=== PATIENT | female | born 1990 | race Caucasian/White ===

== ENCOUNTER 2017-12-28 02:36 | Inpatient (IN) | payer OTHER ==
[~2017-12-28] VITALS: Ht 160 cm; Wt 63.5 kg
--- NOTE | ~2017-12-28 | HC ---
[facility] [place] [address] CONSULTATION Name: ONDINA CLARK Room #: 201-P [facility] IN M.R.#: [id number] Admission: 12/28/17 Attend Phys: Justo Gonzalez MD Discharge: 12/28/17 Date of : 86 Report #: [id number] THIS REPORT FOR: //name// CC: Justo Mckeonmy Mynor DATE OF SERVICE: 12/28/2017 INDICATION: Palpitations. HISTORY OF PRESENT ILLNESS: This is a 27-year-old female presenting with palpitations, elevated blood pressure and tingling across the chest. About 2 weeks ago, she was at the seismograph helper's office and was told that she had an elevated blood pressure. The patient had just moved to [place] and returned this week to visit family members. She was checking her blood pressure and noted to be elevated. Yesterday, she noted a racing heart as well as an elevated blood pressure. She tried to go to sleep, but felt tingling across the chest area, not chest pain. She noticed a fast heart rate and was concerned. She presented to the ER for an evaluation. She denies any history of fever, chills, nausea or diarrhea over the last several days. CTA of the chest revealed no evidence for PE. PAST MEDICAL HISTORY: The patient has a history of pulmonic stenosis, followed by Cardiology, last seen 2 years ago. She has not required any procedures for this problem. Now with borderline hypertension, ?anxiety disorder. ALLERGIES: DOXYCYCLINE. MEDICATIONS: Include control pills and vitamins. SOCIAL HISTORY: Denies tobacco use. Drinks alcohol socially. REVIEW OF SYSTEMS: A full 10-point review of systems performed. Only the pertinent positives and negatives as described in the HPI. PHYSICAL EXAMINATION: VITAL SIGNS: Blood pressure is 140/65, heart rate 76 beats per minute. GENERAL APPEARANCE: This is a well-developed, well-nourished female in no acute distress. HEENT: Normocephalic, atraumatic. Oral mucosa moist. NECK: Supple. LUNGS: Clear to auscultation. CARDIAC: Regular rate and rhythm. S1, S2 positive, 1/6 systolic murmur. ABDOMEN: Soft, nontender. EXTREMITIES: No cyanosis, no edema. [facility] [address] [place] [address] CONSULTATION Name: ONDINA CLARK [facility] Room #: 201-P [facility] IN M.R.#: [id number] Admission: 12/28/17 Attend Phys: Justo oGnzalez MD Discharge: 12/28/17 Date of : 86 Report #: [id number] NEUROLOGIC: Alert and oriented x 3. LABORATORY VALUES: Sodium is 138, creatinine 0.9. TSH is 2.472. White count 6.6, hemoglobin is 15.9. ASSESSMENT AND PLAN: 1. Tachycardia, the rhythm reveals sinus tachycardia, initially at 130 beats per minute, now less than 100 beats per minute, most likely related to anxiety. She admits to feeling increased stress over the past several days. Presently, heart rate is less than 100 beats per minute. I do not think she needs a medication at this time. May need anxiolytic. 2. Borderline hypertension, she has had increased blood pressure over the past few weeks. May in part be related to anxiety as well. Continue to follow blood pressure, if it remains elevated, consider adding a low dose beta umesh. 3. Pulmonic valve stenosis. Echo reveals normal cardiac chamber sizes. There is no evidence for right-sided chamber enlargement. Probable mild pulmonic stenosis by measuring the gradient. She does not have any symptoms of right-sided heart failure. She can follow up with a fondant puff maker as an outpatient. <ELECTRONICALLY SIGNED> By: Foreign Carrillo MD 12/29/17 0812 1054 1530 Foreign Carrillo MD /nt
--- NOTE | ~2017-12-28 | 2DMMODE ---
[facility] [address] [place] [address] 2 D/M-MODE ECHOCARDIOGRAM Name: CLARKONDINA LINDA Room #: 201-P ADM IN M.R.#: [id number] Admission: 12/28/17 Attend Phys: Justo Gonzalez MD Discharge: Date of : 86 Date of Service: 12/28/17 1015 Report #: [id number] THIS REPORT FOR: //name// APPROVED REPORT Study performed: 12/28/2017 07:59:58 EXAM: Comprehensive 2D, Doppler, and color-flow Echocardiogram Patient Location: Bedside Room #: 201 Status: routine BSA: 1.66 HR: 110 bpm BP: 131/72 mmHg Other Information Study Quality: Adequate Indications Tachycardia SOA, Hx congenital pulmonic valve stenosis 2D Dimensions RVDd: 26.52 mm IVSd: 8.83 (7-11mm) LVOT Diam: 19.74 (18-24mm) LVDd: 38.41 mm PWd: 9.95 (7-11mm) Ascending Ao: 28.11 (22-36mm) LVDs: 23.87 (25-40mm) Aortic Root: 24.59 mm IVC: 12.00 mm Volumes Left Atrial Volume (Systole) Single Plane 4CH: 9.51 mL Single Plane 2CH: 12.97 mL LA ESV Index: 7.00 mL/m2 Aortic Valve AoV Peak Quinton.: 1.49 m/s AO Peak Gr.: 8.84 mmHg LVOT Max P.64 mmHg LVOT Max V: 0.95 m/s KRISTIN Vmax: 1.96 cm2 Mitral Valve E/A Ratio: 1.2 MV Decel. Time: 180.30 ms MV E Max Quinton.: 0.91 m/s [facility] [address] [place] [address] 2 D/M-MODE ECHOCARDIOGRAM Name: ONDINA CLARK [facility] Room #: 201-[facility] IN ..#: [id number] Admission: 12/28/17 Attend Phys: Justo Gonzalez MD Discharge: Date of : 86 Date of Service: 12/28/17 1015 Report #: [id number] MV A Quinton.: 0.73 m/s MV PHT: 52.29 ms IVRT: 69.20 ms Pulmonary Valve PV Peak Quintno.: 2.50 m/s PV Peak Gr.: 24.92 mmHg Pulmonary Vein P Vein S: 0.73 m/s P Vein A: 0.18 m/s P Vein D: 0.44 m/s P Vein A Dur.: 71.5 msec P Vein S/D Ratio: 1.66 Tricuspid Valve RAP Estimate: 5.00 mmHg Left Ventricle The left ventricle is normal size. There is normal left ventricular wall thickness. The left ventricular systolic function is normal. The left ventricular ejection fraction is within the normal range. LVEF is 65-70%. The left ventricular diastolic function is normal. Right Ventricle The right ventricle is normal size. The right ventricular systolic function is normal. Atria The left atrium size is normal. The right atrium size is normal. Aortic Valve The aortic valve is normal in structure. No aortic regurgitation is present. There is no aortic valvular stenosis. Mitral Valve The mitral valve is normal in structure. Trace mitral regurgitation. No evidence of mitral valve stenosis. Tricuspid Valve The tricuspid valve is normal in structure. There is no tricuspid valve regurgitation noted. Unable to assess PA pressure. Pulmonic Valve Pulmonic valve is not well visualized. Mild pulmonic stenosis with a maximum pressure gradient of 25 mmHg and a mean pressure gradient of 13 mmHg. There is no pulmonic valvular regurgitation. [facility] [address] [place] [address] 2 D/M-MODE ECHOCARDIOGRAM Name: CLARKONDINA RENEE Room #: 201-P [facility] IN .R.#: [id number] Admission: 12/28/17 Attend Phys: Justo Gonzalez MD Discharge: Date of : 86 Date of Service: 12/28/17 1015 Report #: [id number] Great Vessels The aortic root is normal in size. IVC is normal in size and collapses >50% with inspiration. Pericardium There is no pericardial effusion. <Conclusion> The left ventricle is normal size. There is normal left ventricular wall thickness. The left ventricular systolic function is normal. The left ventricular diastolic function is normal. The right ventricle is normal size. The left atrium size is normal. The right atrium size is normal. The aortic valve is normal in structure. Trace mitral regurgitation. The tricuspid valve is normal in structure. Pulmonic valve is not well visualized. Mild pulmonic stenosis with a maximum pressure gradient of 25 mmHg and a mean pressure gradient of 13 mmHg. <ELECTRONICALLY SIGNED> By: Foreign Carrillo MD 12/28/17 1015 Foreign Carrillo MD /INF
--- NOTE | ~2017-12-28 | HC ---
[facility] [place] [address] CONSULTATION Name: ONDINA CLARK Room #: 201-P [facility] IN M.R.#: [id number] Admission: 12/28/17 Attend Phys: Justo Gonzalez MD Discharge: 12/28/17 Date of : 86 Report #: [id number] THIS REPORT FOR: //name// CC: Justo Lowe DATE OF SERVICE: 12/28/2017 REFERRAL PHYSICIAN: Dr. Arango. REASON FOR CONSULTATION: Dyspnea and tachycardia. HISTORY OF PRESENT ILLNESS: The patient is a 27-year-old white female who presents to the Emergency Room with palpitations and dyspnea. A pulmonary consultation was requested. As a young child the patient was found to have pulmonic valve stenosis. She was told that no surgical treatment was necessary. Overtime, it was felt to be fairly stable. She was seen by an adult correctional counselor/case manager about 2 years ago at [facility]. Cardiac evaluation was said to be stable. She does not recall being told that she has pulmonary embolus. She is visiting from [place]. Her mother lives here. The patient grew up in [place]. Three hours prior to presentation, she began to feel somewhat anxious along with palpitation. She noticed that her heart rate was elevated. She was mildly dyspneic. A week ago, she did feel sick with nausea, vomiting, diarrhea. A CT chest angiogram was performed in the Emergency Room. It was negative for pulmonary embolus. Throughout her stay in the Emergency Department she remained tachycardic with heart rate around 110 beats per minute. The patient was admitted for further observation. The patient does note that she has had trouble with anxiety disorder within the last couple of years. She has never sought treatment. She admits that she was somewhat anxious earlier the evening of presentation to the ER. Otherwise, she denies any fever, night sweats or chills, chest pain, or productive cough. She denies any tobacco use. She denies any illicit drug use. 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 PAST SURGICAL HISTORY: Unremarkable. [facility] [address] [place] [address] CONSULTATION Name: ODNINA CLARK LINDA Room #: 201-P [facility] IN M.R.#: [id number] Admission: 12/28/17 Attend Phys: Justo Gonzalez MD Discharge: 12/28/17 Date of : 86 Report #: [id number] ALLERGIES: DOXYCYCLINE, REACTIONS UNSPECIFIED. HOME MEDICATIONS: Multivitamins and control pills. FAMILY HISTORY: Noncontributory. SOCIAL HISTORY: She denies any tobacco or alcohol use. PRIMARY CARE PHYSICIAN: Dr. Mare Banda. REVIEW OF SYSTEMS: As mentioned above, otherwise 10-point system review negative. PHYSICAL EXAMINATION: GENERAL: She is awake, alert, in no apparent distress. VITAL SIGNS: Temperature is 99 degrees Fahrenheit, pulse had been up to 144 beats per minute currently is 86 beats per minute, sinus rhythm, respiratory rate is 15, blood pressure 140/78 mmHg, saturation 100%. HEENT: Normocephalic, atraumatic. NECK: Supple, without any lymphadenopathy or thyromegaly. CHEST: Breath sounds are clear without any rales or wheezes. CARDIOVASCULAR: Normal S1, prominent S2. No obvious murmurs. Pulses are 2+/4+ bilaterally. BREASTS: Deferred. ABDOMEN: Soft, nontender, no organomegaly or masses felt. GENITOURINARY: Deferred. RECTAL: Deferred. EXTREMITIES: There is no edema, cyanosis or clubbing. LABORATORY DATA: CT chest angiogram as mentioned above showing no evidence of pulmonary embolus. Pulmonary arteries vasculature appears to be moderately prominent. Urine drug screen was negative. D-dimer was mildly elevated at 0.7. Echocardiogram shows pulmonic valve is not well visualized. It is felt to be mildly stenotic, maximum pressure gradient of 25 mmHg with a mean pressure gradient of 13. Pulmonary artery pressure was not measured. Otherwise, rest of the exam was normal including normal LV function, normal mitral and aortic valves. TSH is normal. Free T4 is normal. Electrolytes are normal. CBC was normal. IMPRESSION: Tachycardia, dyspnea in this 27-year-old white female. She has a history of congenital mild pulmonic valve stenosis. CT chest angiogram is negative for pulmonary embolus. Echocardiogram does confirm the presence of mild pulmonic valve stenosis without obvious presence of pulmonary hypertension. The patient suggests a history of anxiety disorder. The patient's symptoms are likely related to anxiety disorder. No evidence of [facility] [address] [place] [address] CONSULTATION Name: ONDINA CLARK Room #: 201-P DIS IN M.R.#: [id number] Admission: 12/28/17 Attend Phys: Justo Gonzalez MD Discharge: 12/28/17 Date of : 86 Report #: [id number] pulmonary embolus or pulmonary process as mentioned above. Overall, the patient is stable from a pulmonary standpoint. No further workup is necessary at this time. Should the patient's respiratory symptoms recur or worsen, we would be happy to see the patient in the future. Thank you for this consultation. <ELECTRONICALLY SIGNED> By: Epifanio Lowe MD 12/29/17 1357 1456 1849 Epifanio Lowe MD /nt
--- NOTE | ~2017-12-28 | EKG ---
[address] [address] ELECTROCARDIOGRAM REPORT Name: ONDINA CLARK Room #: 201-P ADM IN M.R.#: [id number] Admission: 12/28/17 Attend Phys: Justo Gonzalez MD Discharge: Date of : 86 Report #: [id number] THIS REPORT FOR: //name// [facility] ED Test Date: 2017-12-28 Test Time: 02:52:18 Pat Name: ONDINA CLARK Department: Room: 201 Gender: F Director [employer]: DIXON MEDEL : 1990 Requested By: Iker Onofre Order Number: [id number] MD: Foreign Carrillo Measurements Intervals [place] Rate: 111 P: 83 CO: 101 QRS: 80 QRSD: 91 T: -11 QT: 323 QTc: 439 Interpretive Statements Sinus tachycardia Borderline repolarization abnormality No previous ECG available for comparison Electronically Signed On 12-28-2017 11:06:54 CDT by Foreign Carrillo [email or web address] <ELECTRONICALLY SIGNED> By: Foreign Carrillo MD 12/28/17 1106 0252 0252 Foreign Carrillo MD /EPI
[~2017-12-28 02:36] MED LIST: AMOXICILLI250 MG/51 PO; BIRTH CONTROL PO; IBUPROFEN200 M2 PO; LORTABELXR PO
[2017-12-28 02:58] VITALS: BP 153/88
[2017-12-28] MEDS ORDERED: UNICOMPLEX M TA1 TA1 PO (03:03)
[2017-12-28 03:07] LABS: ABSOLUTE NEUTROPHILS 4.3 thou/uL (1.4-8.2); BASOPHILS 0.8 % (0.0-2.0); EOSINOPHILS 0.5 % (0.0-3.0); HEMATOCRIT 46.1 % (37.0-47.0); HEMOGLOBIN 15.9 gm/dL (12.0-15.0); LYMPHOCYTES 26.6 % (24.0-44.0); MCH 31.9 pg (26.0-34.0); MCHC 34.4 g/dL (28.0-37.0); MCV 92.9 fL (80.0-100.0); MONOCYTES 6.9 % (1.0-8.0); PLATELET COUNT 194 thou/uL (150-400); POLYS 65.2 % (36.0-66.0); RBC 4.97 mil/uL (4.20-5.00); RDW 12.1 % (10.5-14.5); WBC 6.6 thou/uL (4.0-11.0)
[2017-12-28 03:24] LABS: ANION GAP 11 mmol/L (7-16); BUN 8 mg/dL (7-18); CALCIUM 9.8 mg/dL (8.5-10.1); CHLORIDE 103 mmol/L (98-107); CO2 24 mmol/L (21-32); CREATININE 0.9 mg/dL (0.6-1.0); GLUCOSE 134 mg/dL (74-106); SODIUM 138 mmol/L (136-145)
[2017-12-28 03:33] LABS: TROPONIN-I <0.06 ng/mL (<0.06)
[2017-12-28 05:53] LABS: AMP/METHAMP Negative (Negative); BARBITURATES Negative (Negative); BENZODIAZEPINES Negative (Negative); COCAINE Negative (Negative); METHADONE Negative (Negative); OPIATES Negative (Negative); PCP Negative (Negative)
[2017-12-28 06:39] VITALS: BP 142/66
[2017-12-28 06:40] VITALS: BP 131/72
[2017-12-28 07:55] VITALS: BP 144/65
[2017-12-28 11:08] VITALS: BP 142/78
[2017-12-28 16:00] VITALS: BP 142/78
== END 2017-12-28 16:36 | disposition home or self-care (01) | DRG 313 ==
LOC: ER 02:36 → EROBS 05:55 → 2N 06:42
PROVIDERS: Emergency Medicine
DX: R07.89 Other chest pain (principal); Q22.1 Congenital pulmonary valve stenosis; F41.9 Anxiety disorder, unspecified; R00.0 Tachycardia, unspecified; K08.409 Partial loss of teeth, unspecified cause, unspecified class; R03.0 Elevated blood-pressure reading, without diagnosis of hypertension; Z88.8 Allergy status to other drugs, medicaments and biological substances; Z79.899 Other long term (current) drug therapy
CPT/HCPCS: 10081